=== PATIENT | male | born 1945 | race Caucasian/White ===

== ENCOUNTER 2020-08-18 02:33 | Outpatient (CLI) | payer MEDICARE, SELFPAY ==
[2020-08-18 23:12] LABS: SARS-CoV-2 RNA PCR Negative
== END 2020-08-18 02:34 | disposition home or self-care (01) ==
LOC: ANHCOVIDDT 02:34
PROVIDERS: PCP Family Medicine; Visit Provider Internal Medicine Gastroenterology
DX: Z01.812 Encounter for preprocedural laboratory examination (principal); Z20.828 Contact with and (suspected) exposure to other viral communicable diseases
CPT/HCPCS: 87635; C9803; U0003

== ENCOUNTER 2020-08-21 00:53 | Day surgery (SDC) | payer MEDICARE, SELFPAY ==
[2020-08-15 10:50] VITALS: BMI 30.6
[2020-08-21 07:56] VITALS: BP 164/85; PULSE 72; RESP 18; TEMP 36.5; O2SAT 97; BMI 31.1
[2020-08-21] MEDS: LACTATED RINGERS 1,000 ML 150 ML IV CONT (08:10)
[2020-08-21 08:13] LABS: Glucose Point of Care 110 (65-105)
--- NOTE | 2020-08-21 08:35 | WPDANESEPPF ---
Anes - Initial Pre Proc Eval Procedure: Operation Date: 08/21/20 09:00 Proposed Procedures p Screening Colonoscopy - Sharad Mcnair MD Date/Time: 08/21/20 08:35 Surgeon: Sharad Mcnair MD Pre Op Diagnosis: neoplasm screening Patient Data Age: 75 Gender: M Height: 5 ft 7 in Weight: 90.2 kg Last Vital Signs Temp 36.5 C 08/21/20 07:56 Pulse 72 08/21/20 07:56 Resp 18 08/21/20 07:56 BP 164/85 H 08/21/20 07:56 Pulse Ox 97 08/21/20 07:56 Allergies Allergy/AdvReac Type Severity Reaction Status Date / Time No Known Allergies Allergy Mild Verified 08/21/20 07:54 Home Medications Medication Instructions Recorded Confirmed Type aspirin 81 mg tablet,delayed 81 mg PO DAILY 12/27/19 08/15/20 History release sumatriptan succinate 100 mg tablet See Rx Instructions PO .COMPLEX 12/27/19 08/15/20 History fenofibrate micronized 134 mg 134 mg PO DAILY #90 cap 01/10/20 08/15/20 Rx capsule simvastatin 20 mg tablet 20 mg PO DAILY #90 tablet 04/10/20 08/15/20 Rx nortriptyline 25 mg capsule 25 mg PO QPM #90 cap 05/16/20 08/15/20 Rx quinapril 10 mg tablet 10 mg PO DAILY #90 tablet 05/16/20 08/15/20 Rx sertraline 100 mg tablet 100 mg PO DAILY #90 tablet 05/16/20 08/15/20 Rx metformin 500 mg PO DAILY 08/15/20 08/15/20 History Laboratory Tests 08/21/20 08:09 POC Capillary Glucose 110 mg/dl mg/dl (65-105) Patient hx anesthesia problems: none Family hx anesthesia problems: none [facility] Past Medical History Medical History Hepatitis C antibody test negative (07/31/17) Family History Family History Mother Diabetes mellitus Father Hypertension Grandparent Family history of elevated blood lipids Family history of cardiovascular disease Family history of kidney disease Social History Social History Smoking status: Never smoker Alcohol intake: never Substance use: never Living arrangements: with family Gender identity (if verbalized by the patient): Male Spiritual care concerns: No Anes - Eval Final PreProcedure Day of Procedure 08/21/20 08:35 Patient weight: obese Heart: regular rate and rhythm Lungs: clear to auscultation Airway: Mallampati scale class IV Neurological: alert and oriented Last oral intake: >/= 8 hours ASA classification: III Emergent: no Anesthetic plan: proceed Anesthesia type and monitoring: general GIVS and standard monitoring Informed Consent: The patient's anesthetic plan and its attendant risks and benefits were discussed with the patient/family/POA. Questions were solicited and answers provided to the satisfaction of the patient/family/POA.
--- NOTE | 2020-08-21 08:39 | WPDGICN ---
Assessment and Plan Assessment and plan (1) Encounter for screening colonoscopy: Code(s): Z12.11 - Encounter for screening for malignant neoplasm of colon Status: Acute Assessment and Plan: Patient presents for screening colonoscopy. He has been 10 years since last exam. Current weight appetite bowel movements are normal. Patient denies abdominal pain or bleeding. GI Consult Note Consult date/time: 08/21/20 08:39 HPI: Bong Solano is a 75 year old male seen in evaluation at the request of Dr. Amanda Diamond. patient presents for screening exam. Patient's current weight appetite bowel movements are normal. patient's last colonoscopy 10 years ago was unremarkable. Patient returns today for follow-up colonoscopy. Current weight appetite bowel is normal. He denies any blood in his stools. Family history is noncontributory. [facility], [facility] Past Medical History Medical History (Updated 08/21/20 @ 08:40 by Sharad Mcnair MD) Hepatitis C antibody test negative (07/31/17) Family History Family History Mother Diabetes mellitus Father Hypertension Grandparent Family history of elevated blood lipids Family history of cardiovascular disease Family history of kidney disease Social History Social History Smoking status: Never smoker Alcohol intake: never Substance use: never Living arrangements: with family Gender identity (if verbalized by the patient): Male Spiritual care concerns: No Meds Home Medications and Allergies Home Medications Medication Instructions Recorded Confirmed Type aspirin 81 mg tablet,delayed 81 mg PO DAILY 12/27/19 08/15/20 History release sumatriptan succinate 100 mg tablet See Rx Instructions PO .COMPLEX 12/27/19 08/15/20 History fenofibrate micronized 134 mg 134 mg PO DAILY #90 cap 01/10/20 08/15/20 Rx capsule simvastatin 20 mg tablet 20 mg PO DAILY #90 tablet 04/10/20 08/15/20 Rx nortriptyline 25 mg capsule 25 mg PO QPM #90 cap 05/16/20 08/15/20 Rx quinapril 10 mg tablet 10 mg PO DAILY #90 tablet 05/16/20 08/15/20 Rx sertraline 100 mg tablet 100 mg PO DAILY #90 tablet 05/16/20 08/15/20 Rx metformin 500 mg PO DAILY 08/15/20 08/15/20 History Allergies Allergy/AdvReac Type Severity Reaction Status Date / Time No Known Allergies Allergy Mild Verified 08/21/20 07:54 Vital Signs Vital Signs - 24 hr 08/21/20 07:56 Temperature 97.7 F Pulse Rate 72 Respiratory Rate 18 Blood Pressure 164/85 H Pulse Oximetry 97 Exam Narrative: Exam Narrative: Physical exam reveals patient to be alert. Vital signs stable. HEENT exam unremarkable. Lungs are clear to auscultation and percussion. Heart is without murmur or extra sounds. Abdominal exam bowel sounds are present soft nontender with no organomegaly. Digital external rectal exam is normal.
[2020-08-21 09:31] VITALS: BP 136/75; PULSE 65; RESP 18; O2SAT 97
[2020-08-21 09:41] VITALS: BP 132/74; PULSE 66; RESP 18; O2SAT 97
[2020-08-21 09:51] VITALS: BP 156/81; PULSE 61; RESP 16; O2SAT 98
== END 2020-08-21 10:18 | disposition home or self-care (01) ==
PROVIDERS: PCP Family Medicine; Visit Provider Internal Medicine Gastroenterology
PROC: 0DJD8ZZ Inspection of Lower Intestinal Tract, Via Natural or Artificial Opening Endoscopic (ICD-10-PCS; CPT 45378; principal; 2020-08-21 09:00)
DX: Z12.11 Encounter for screening for malignant neoplasm of colon (principal); K64.8 Other hemorrhoids; Z79.82 Long term (current) use of aspirin; E66.9 Obesity, unspecified; Z68.31 Body mass index [BMI] 31.0-31.9, adult
CPT/HCPCS: G0121; J2704; J7120

== ENCOUNTER → 2021-01-10 10:21 | Outpatient (CLI) | payer MEDICARE, SELFPAY ==
--- NOTE | ~2021-01-10 | XR_ITS ---
EXAMINATION: XR chest 2V EXAM DATE: 01/10/2021 10:29 INDICATION: Sarcoma left upper extremity. TECHNIQUE: Frontal and lateral projections of the chest obtained and reviewed. There is no prior irma dy for comparison. FINDINGS: There is approximately 6 mm density projecting over left lower lung zone, left 6th rib ant eriorly, more likely patient's nipple, bone island or some epicardial fat bulging rather than intrapa renchymal nodule. The lungs are otherwise clear. There are no pleural effusions. The cardiomediasti nal silhouette is within normal limits. There is no pneumothorax suspected. Patient may have ankylos ing spondylitis. There are no osteoblastic or osteolytic lesions identified. IMPRESSION: 1. Left basilar nodular density; can't exclude intraparenchymal nodule. Consider chest CT. 2. Probable ankylosing spondylitis. Reviewed, dictated and finalized at location A. UNICATIONS TECHNOLOGIST IMPRESSION: 1. Left basilar nodular density; can't exclude intraparenchymal nodule. Conside r chest CT. 2. Probable ankylosing spondylitis.
== END ==
PROVIDERS: PCP Surgery; Visit Provider Surgery
DX: C49.12 Malignant neoplasm of connective and soft tissue of left upper limb, including shoulder (principal); R91.8 Other nonspecific abnormal finding of lung field
CPT/HCPCS: 71046

== ENCOUNTER 2021-03-09 16:49 | Emergency (ER) | payer MEDICARE, SELFPAY ==
[2021-03-09 16:55] VITALS: BP 141/58; PULSE 98; RESP 16; TEMP 35.9; O2SAT 98
--- NOTE | 2021-03-09 17:05 | ED.SKABFB ---
HPI - Skin/Abscess/Foreign Bdy General Chief complaint: Skin/Abscess/Foreign Body Stated complaint: R THUMB LACERATION Time Seen by Provider: 03/09/21 17:02 Source: patient and RN notes reviewed Mode of arrival: ambulatory Limitations: no limitations History of Present Illness HPI narrative: 75 a male presents with concern for laceration to the first digit of his right hand. Reports he was chopping food approximately 1 hour ago when he cut the finger. Reports he has been applying pressure, however the area is still bleeding. He denies any decreased sensation, strength, range of motion in the digit. complaint: laceration Related Data Home Medications Medication Instructions Recorded Confirmed aspirin 81 mg tablet,delayed 81 mg PO DAILY 12/27/19 01/26/21 release sumatriptan succinate 100 mg tablet See Rx Instructions PO .COMPLEX 12/27/19 01/26/21 Allergies Allergy/AdvReac Type Severity Reaction Status Date / Time No Known Allergies Allergy Mild Verified 01/26/21 13:31 Review of Systems Review of Systems: Narrative: CONSTITUTIONAL: Denies malaise, chills, sweats, or fever. SKIN: Reports laceration to the first digit of the right hand MUSCULOSKELETAL: Denies muscle skeletal pain, decreased sensation NEUROLOGIC: Denies numbness, weakness All systems reviewed & are unremarkable except as noted in HPI and below PMFSH Past Medical History Medical History (Updated 03/09/21 @ 17:42 by Gaby Arndt NP) Hepatitis C antibody test negative (07/31/17) Family History Family History Mother Diabetes mellitus Father Hypertension Grandparent Family history of elevated blood lipids Family history of cardiovascular disease Family history of kidney disease Social History Social History Smoking status: Never smoker Alcohol intake: never Substance use: never Gender identity (if verbalized by the patient): Male Spiritual care concerns: No Comments At time of signature, agree with nursing past medical, surgical, social and family history. There is no relevant family history pertinent to the presenting complaint Exam Narrative: Exam Narrative: GENERAL: Well-appearing, well-nourished, and in no acute distress. HEAD: Normocephalic EYES: PERRLA, conjunctivae clear NECK: Supple. CHEST: Speaks in full sentences. No respiratory distress. HEART: Regular rate and rhythm. Normal and equal peripheral pulses. EXTREMITIES: First digit of right hand as normal strength and sensation. 5/5 strength with digit flexion, extension. Range of motion normal. Normal digital cascade with flexion of fingers, median, ulnar and radial nerve intact. Normal sensation of each side of finger. Can perform 'okay' sign, 'cross over finger test of index and middle fingers' and 'thumbs up' sign. No scissoring. Normal thumb opposition. Good capillary refill and radial pulse. Distal capillary refill less than 3 seconds. SKIN: Warn, dry, intact, pink. 1 cm skin avulsion noted to the lateral edge of the first digit of the right hand, large amount of bleeding noted NEURO: Alert and oriented x3. PSYCH: Normal mood and affect Course Course Emergency Course: Surgicel applied with continuous pressure, when pressure is released copious bleeding resumes. Surgicel removed without complication, let gel applied with pressure dressing, patient's hand raise above his head. Patient is aware of diagnosis, understands and agrees to treatment plan. Anticipatory guidance given. Patient agrees to follow-up as directed and is aware of reasons to seek care at the emergency department. Portions of this record may have been created with voice recognition software Vital Signs Vital signs: Vital Signs Temperature 96.7 F L 03/09/21 16:55 Pulse Rate 98 03/09/21 16:55 Respiratory Rate 16 03/09/21 16:55 Blood Pressure 141/58 H 03/09/21 16:55
--- NOTE | 2021-03-09 17:41 | PC.NURSE ---
Unable to scan medications as printer for arm bands is not functioning. LET and surgicel applied by Gbay Arndt. Pressure dressing applied to control bleeding.
== END 2021-03-09 17:57 | disposition home or self-care (01) ==
PROVIDERS: Emergency Provider Nurse Practitioner; PCP Family Medicine
DX: S61.001A Unspecified open wound of right thumb without damage to nail, initial encounter (principal); W45.8XXA Other foreign body or object entering through skin, initial encounter; Z79.82 Long term (current) use of aspirin
CPT/HCPCS: 99212; G0463

== ENCOUNTER → 2022-01-01 11:18 | Outpatient (CLI) | payer MEDICARE, SELFPAY ==
--- NOTE | ~2022-01-01 | XR_ITS ---
EXAMINATION: XR chest 2V EXAM DATE: 01/01/2022 11:44 INDICATION: Sarcoma Lt Upper Extremity; No Chest C/O. TECHNIQUE: Frontal and lateral projections of the chest obtained and reviewed. Comparison is made to prior examination from 01/10/2021. FINDINGS: Patient may have ankylosing spondylitis. There are no osteoblastic or osteolytic lesions id entified. No confluent consolidation, pneumothorax or pleural effusion suspected. Cardiomediastinal silhouette is normal. There is no significant interval change. IMPRESSION: Stable exam. Possible ankylosing spondylitis. Reviewed, dictated and finalized at location A. THREADER OPERATOR
== END ==
PROVIDERS: PCP Family Medicine; Visit Provider Surgery
DX: C49.12 Malignant neoplasm of connective and soft tissue of left upper limb, including shoulder (principal)
CPT/HCPCS: 71046

== ENCOUNTER → 2022-04-19 10:45 | Outpatient (CLI) | payer MEDICARE, SELFPAY ==
--- NOTE | ~2022-04-19 | XR_ITS ---
XR hand RT min 3V DATE: 04/19/2022 11:00 INDICATION: Right thumb pain TECHNIQUE: 3 views COMPARISON: None FINDINGS: No fracture or dislocation, periosteal reaction or bone destruction is detected. There is mild osteoarthritis at the first carpometacarpal joint. 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
== END ==
PROVIDERS: PCP Family Medicine; Visit Provider Family Medicine
DX: M79.644 Pain in right finger(s) (principal); M19.041 Primary osteoarthritis, right hand
CPT/HCPCS: 73130

== ENCOUNTER 2022-05-07 16:18 | Emergency (ER) | payer MEDICARE, SELFPAY ==
--- NOTE | ~2022-05-07 | XR_ITS ---
EXAM: XR femur RT min 2V DATE: 05/07/2022 17:00 HISTORY: injury FALL TODAY, PAIN TO PROXIMAL KNEE, BRUISING/ SWELLING . COMPARISON: None available. FINDINGS: Normal mineralization. No fracture or dislocation. No lytic or blastic lesion. Degenerativ e changes at the right hip and right knee. No erosion or periosteal change. Soft tissues within eula l limits. IMPRESSION: No acute osseous finding in the right femur. Reviewed, dictated and finalized at location K.
[2022-05-07 16:21] VITALS: BP 153/65; PULSE 67; RESP 16; TEMP 36.6; O2SAT 97
--- NOTE | 2022-05-07 16:35 | ED.LOWEXIN ---
HPI - Extremity Injury (Lower) General Chief Complaint: Extremity Injury, Lower Stated Complaint: knee pain Time Seen by Provider: 05/07/22 16:27 History of Present Illness HPI Narrative: pt slipped on his new floors landed right knee outside of it and has pain over the patella and distal femur no other injuries no loc or head/neck/back injury no previous injury no blood thinners says pain wiht movement Related Data Home Medications Medication Instructions Recorded Confirmed aspirin 81 mg tablet,delayed 81 mg PO DAILY 12/27/19 04/19/22 release Allergies Allergy/AdvReac Type Severity Reaction Status Date / Time No Known Allergies Allergy Mild Verified 05/07/22 16:24 Review of Systems Constitutional: Comments: CONSTITUTIONAL: Denies fever, chills, or sweats. EYES: Denies visual changes, redness, or discharge. ENT: Denies rhinorrhea, congestion, sore throat, or otalgia. CARDIOVASCULAR: Denies chest pain, palpitations, or edema. RESPIRATORY: Denies cough or dyspnea. GASTROINTESTINAL: Denies abdominal pain, nausea, vomiting, or diarrhea. GENITOURINARY: Denies dysuria or hematuria. SKIN: Denies rash or itching. MUSCULOSKELETAL: Denies back pain, or myalgia. has right knee pain post fall NEUROLOGIC: Denies headache, numbness, or weakness. PSYCHIATRIC: Denies anxiety or depression. [facility] Past Medical History Medical History (Updated 05/07/22 @ 17:22 by Jessica Odom MD) Hepatitis C antibody test negative (07/31/17) Family History Family History (Reviewed 03/25/22 @ 13:57 by Emi Rodriguez [facility]) Mother Diabetes mellitus Father Hypertension Grandparent Family history of elevated blood lipids Family history of cardiovascular disease Family history of kidney disease Social History Social History (Updated 04/19/22 @ 10:13 by Emi Rodriguez [facility]) Smoking status: Never smoker Second hand tobacco smoke exposure: No Alcohol intake: never Substance use: never Gender identity (if verbalized by the patient): Male Spiritual care concerns: No Exam Const: Other: APPEARANCE: Well appearing, no pain in distress, well-nourished. Head normocephalic atraumtaic. EYES: PERRLA/EOMI, conjunctivae very clear. NOSE: Normal no drainage EARS:TMS clear Sarah Moscoso, with good light reflex. THROAT: Pharynx clear, no exudate. NECK: Supple. No adenopathy, no masses. RESPIRATORY: Airway patent, repsirations nonlabored. Clear to auscultation bilaterally, no rales, rhonchi, wheezing. CARDIOVASCULAR: Regular rate and rhythm without murmurs rubs or gallops. ABDOMINAL: Soft, nontender, nondistended, no hepatosplenomegally MUSCULOSKELETAl: Moves all extremities. Strenght/ROM intact, No edema, No calf tenderness. has pain with movement right knee on patella and distal femur no tendon deficit noted good distal pulses no swelling no other joint pain NEURO: Alert. Cranial nerves II through XII intact. Good gait. Good coordination SKIN:: Warm, dry. Normal Color PSYCHIATRIC: Normal affect/mood, normal interaction with parents. Course Reevaluation(s) Reevaluation #1: pt able to bend knee more after toradol no patellar tendon rupture ? strain/partial injury given no fx updated pt on plan has walker at home good with this will update dr mari dixon at 1727 Reevaluation #2: talked with dr mari garcia with plan at 1730 Vital Signs Vital signs: Vital Signs Temperature 36.6 C 05/07/22 16:21 Pulse Rate 67 05/07/22 16:21 Respiratory Rate 16 05/07/22 16:21 Blood Pressure 153/65 H 05/07/22 16:21 Pulse Oximetry 97 05/07/22 16:21 Oxygen Delivery Room Air 05/07/22 16:21 Temperature 36.6 C 05/07/22 16:21 Pulse Rate 67 05/07/22 16:21 Respiratory Rate 16 05/07/22 16:21 Blood Pressure 153/65 H 05/07/22 16:21 Pulse Oximetry 97 05/07/22 16:21 Oxygen Delivery Room Air 05/07/22 16:21 MDM - Extremity Injury (Lower) Imaging Data Radiologist's impression: Impressions Femur
[2022-05-07] MEDS: KETOROLAC 30 MG/ML VIAL (*BKC) IV PUSH (16:43)
--- NOTE | 2022-05-07 18:30 | PC.NURSE ---
patient unable to use crutches. able to demonstrate proper and safe use of walker prior to discharge
[2022-05-07 18:31] VITALS: BP 150/74; PULSE 65; RESP 16; O2SAT 98
== END 2022-05-07 18:33 | disposition home or self-care (01) ==
LOC: ANHED 17:41
PROVIDERS: Emergency Provider Emergency Medicine; PCP Family Medicine
DX: S86.911A Strain of unspecified muscle(s) and tendon(s) at lower leg level, right leg, initial encounter (principal); Z79.84 Long term (current) use of oral hypoglycemic drugs; Z79.82 Long term (current) use of aspirin; W01.0XXA Fall on same level from slipping, tripping and stumbling without subsequent striking against object, initial encounter
CPT/HCPCS: 73552; 96374; 99284; J1885

== ENCOUNTER → 2023-01-14 08:58 | Outpatient (CLI) | payer MEDICARE, SELFPAY ==
--- NOTE | ~2023-01-14 | XR_ITS ---
XR chest 2V DATE: 01/14/2023 09:10 INDICATION: Skin cancer 4 years ago. Left upper extremity sarcoma. TECHNIQUE: 2 views COMPARISON: January 01, 2022 PA and lateral chest FINDINGS: Heart size within normal limits. No hilar or mediastinal enlargement. No pulmonary infiltrate or consolidation, pleural effusion or pulmonary vascular congestion or pneumo thorax. Degenerative spurring of the thoracic and lumbar spine. IMPRESSION: No active cardiopulmonary disease Reviewed, dictated and finalized at location L. TENANCE WORKER
== END ==
PROVIDERS: PCP Family Medicine; Visit Provider Surgery
DX: C49.12 Malignant neoplasm of connective and soft tissue of left upper limb, including shoulder (principal)
CPT/HCPCS: 71046

== ENCOUNTER → 2024-01-12 14:24 | Outpatient (CLI) | payer MEDICARE, SELFPAY ==
--- NOTE | ~2024-01-12 | XR_ITS ---
EXAMINATION: XR chest 2V Exam Date/Time: 01/12/2024 14:30 FRUIT AND VEGETABLE FACTORY WORKER HISTORY: sarcoma of lt upper extremity Comparison: None. RESULT: Lines, tubes, and devices: None. Lungs and pleura: Senescent/emphysematous change. Minimal streaky bibasilar scar/atelectasis field c omp 01/14/2023. Cardiomediastinal silhouette: Stable. Other: No acute osseous or upper abdominal finding. IMPRESSION: No acute cardiopulmonary process. Reviewed, dictated and finalized at location K. T AND VEGETABLE FACTORY WORKER
== END ==
PROVIDERS: PCP Family Medicine; Visit Provider Surgery
DX: C44.609 Unspecified malignant neoplasm of skin of left upper limb, including shoulder (principal)
CPT/HCPCS: 71046

== ENCOUNTER 2025-01-10 15:22 | Outpatient (CLI) | payer MEDICARE, SELFPAY | END 2025-01-10 15:23 | disposition home or self-care (01) | LOC: GOSHIMG 15:24 | PROVIDERS: PCP Family Medicine; Visit Provider Surgery | DX: C49.12 Malignant neoplasm of connective and soft tissue of left upper limb, including shoulder (principal) | CPT/HCPCS: 71046 ==